=== PATIENT | female | born 1965 | race African-American/Black ===

== ENCOUNTER 2020-10-11 20:22 | Emergency (ER) | payer BC, SELFPAY ==
[2020-10-11 20:30] VITALS: BP 121/72; PULSE 77; RESP 18; TEMP 36.9; O2SAT 97
[2020-10-11 21:46] LABS: Basophils Percent Auto 0.3 % (0.2-1.2); Eosinophils Absolute Auto 0.1 K/mm3 (0-0.3); Eosinophils Percent Auto 1.5 % (0-4.4); Hemoglobin 12.6 g/dL (12.0-15.0); Immature Granulocyte Absolute 0.02 K/mm3 (0.00-0.031); Immature Granulocyte Percent A 0.2 % (0-0.5); Lymphocytes Absolute Auto 2.21 K/mm3 (0.9-3.2); Lymphocytes Percent Auto 25.2 % (18.3-44.2); Mean Corpuscular HGB Conc 33.2 g/dl (32-36); Mean Corpuscular Hemoglobin 30.6 pg (26-34); Mean Corpuscular Volume 92.2 fl (80-100); Mean Platelet Volume 10.2 fl (7.4-10.4); Monocytes Absolute Auto 0.6 K/mm3 (0.1-0.6); Monocytes Percent Auto 6.8 % (2.6-8.5); Neutrophils Absolute Auto 5.8 K/mm3 (1.3-6.7); Platelet Count Result 251 k/mm3 (150-375); Red Blood Count 4.12 M/mm3 (4.2-5.4); Red Cell Distribution Width 12.7 % (11.5-14.5); White Blood Count 8.8 K/mm3 (4.5-10.0)
[2020-10-11 21:56] LABS: Alanine Aminotransferase 12 U/L (4-35); Albumin Level 4.3 g/dL (3.5-5.1); Alkaline Phosphatase 61 U/L (38-126); Anion Gap 6 mmol/L (8-16); Aspartate Amino Transferase 19 U/L (14-36); Bilirubin,Total 0.4 mg/dL (0.2-1.3); Blood Urea Nitrogen 11 mg/dL (7-17); Calcium 8.4 mg/dL (8.4-10.2); Carbon Dioxide 29 mmol/L (22-30); Chloride 102 mmol/L (98-107); Estimated CRCL calculation 76 ml/min; Estimated Glomerular Filt Rate > 60; Glucose 90 mg/dL (65-110); Potassium 3.4 mmol/L (3.4-5.0); Sodium 137 mmol/L (137-145)
[2020-10-11 22:05] VITALS: BP 115/57; PULSE 62; O2SAT 100
--- NOTE | 2020-10-11 23:39 | ED.GENADULT ---
HPI - General Adult General Chief complaint: Recheck/Abnormal Lab/Rx Stated complaint: high bp, dysuria (scant void) Time Seen by Provider: 10/11/20 23:38 Source: patient Mode of arrival: ambulatory Limitations: no limitations History of Present Illness HPI narrative: Patient is a 55-year-old female complaining of decreased urine output x1 week. Patient states that she takes her water pill, HCTZ, she would usually have increased urine output and help with the swelling of her legs. Past 2 weeks it is not helping and she is unable to see her primary care physician until the end of October to have the medication changed. Patient denies any headache, dizziness, chest pain, shortness of breath, abdominal pain, nausea, vomiting, diarrhea, fever or chills. Patient states that she is taking lisinopril for high blood pressure. Patient states that she had some blurry vision earlier in the week but has not had since. Denies any speech or visual disturbance, focal weakness or numbness, or unsteady gait. Related Data Home Medications Medication Instructions Recorded Confirmed hydrochlorothiazide 25 mg PO DAILY 10/11/20 lisinopril 20 mg PO DAILY 10/11/20 Allergies Allergy/AdvReac Type Severity Reaction Status Date / Time diphenhydramine AdvReac Dizziness Verified 10/11/20 23:38 [From Cristhian] Review of Systems Review of Systems: All systems reviewed & are unremarkable except as noted in HPI and below Constitutional: Constitutional: Denies body ache(s), Denies chills, Denies excessive sweating, Denies fatigue, Denies fever(s), Denies headache(s), Denies lethargy, Denies malaise, Denies weakness and Denies weight loss Eyes: Eyes: Denies blurry vision, Denies change in vision and Denies loss of vision ENT: Denies dizziness, Denies ear discharge, Denies headache(s), Denies lip swelling, Denies epistaxis, Denies nasal congestion, Denies neck pain, Denies throat swelling and Denies tongue swelling Cardiovascular: Cardiovascular: Denies chest pain, Denies chest pain at rest, Denies chest pain with activity, Denies diaphoresis, Denies rapid heart rate, Denies edema, Denies irregular heart rhythm, Denies lightheadedness, Denies palpitations, Denies dyspnea and Denies dyspnea on exertion Respiratory: Respiratory: Denies chest congestion, Denies cough, Denies hemoptysis, Denies dyspnea and Denies dyspnea on exertion Gastrointestinal: Gastrointestinal: Denies abdominal pain, Denies melena, Denies hematochezia, Denies diarrhea, Denies nausea, Denies vomiting and Denies hematemesis Musculoskeletal: Musculoskeletal: Denies abnormal gait, Denies deformity, Denies joint swelling, Denies limited range of motion, Denies neck pain and Denies numbness Neurologic: Denies Abnormal speech present, Denies abnormal gait, Denies confusion, Denies dizziness, Denies headache(s), Denies focal weakness, Denies loss of vision, Denies numbness, Denies Sensory deficit (Neuro) and Denies weakness Psychiatric: Psychiatric: Denies confusion, Denies depression, Denies auditory hallucinations, Denies homicidal ideation and Denies suicidal ideation Endocrine: Endocrine: Denies cold intolerance, Denies excessive sweating, Denies fatigue, Denies heat intolerance and Denies palpitations Hematologic/Lymphatic: Hematologic/Lymphatic: Denies easy bleeding and Denies easy bruising Allergic/Immunologic: Allergic/Immunologic: Denies lip swelling, Denies throat swelling and Denies tongue swelling PMFSH Social History Social History Gender identity (if verbalized by the patient): Female Comments Past medical history: Hypertension Family history: Noncontributory Social history: Non-smoker no EtOH or drug use Exam Const: General: cooperative, healthy appearing, comfortable, no acute distress, well developed, alert and awake; No confusion Orientation/consciousness: oriented to person, oriented to place, oriented to time, patient oriented x3 and No confusion Limitatio
[2020-10-11 23:44] VITALS: BP 120/73; PULSE 65; RESP 14; O2SAT 100
[2020-10-12 01:08] VITALS: BP 112/64; PULSE 61; RESP 16; O2SAT 100
== END 2020-10-12 01:08 | disposition home or self-care (01) ==
PROVIDERS: Emergency Medicine; Emergency Provider Emergency Medicine
DX: R60.0 Localized edema (principal); I10 Essential (primary) hypertension
CPT/HCPCS: 36415; 80053; 85025; 99283

== ENCOUNTER 2021-01-14 16:27 | Emergency (ER) | payer BC, SELFPAY ==
[2021-01-14 16:29] VITALS: BP 147/85; PULSE 75; RESP 16; TEMP 36.3; O2SAT 96
[2021-01-14 17:03] LABS: Add Urine Microscopic? NO; Appearance Urine Clear (Clear); Bilirubin Urine Negative (Negative); Blood Urine Negative (Negative); Color Urine Yellow (Yellow); Glucose Urine UA Negative (Negative); Ketones Urine Negative (Negative); Leukocyte Esterase Ur Negative LEU/UL (Negative); Nitrate Urine Negative (Negative); Protein Urine Negative (Negative); Specific Grav Ur 1.016 (1.001-1.035); Urobilinogen Urine Negative mg/dL (<2.0)
--- NOTE | 2021-01-14 17:50 | ED.FEMALEGU ---
HPI - Female Genitourinary General Chief complaint: Urogenital-Female Stated complaint: bladder infection Time Seen by Provider: 01/14/21 17:18 History of Present Illness HPI Narrative: Patient is a 55-year-old female who presents ER with urinary frequency. Ongoing over the last week. Reports she is urinating 20 times a day. No dysuria. She feels like she does have some poor smelling urine. No fevers or chills or sweats. No lower abdominal pain but does feel like she has bloating or retaining urine. She reports this happened to her in the past when she lived in [place] and she was told she had the female equivalent of a male prostate and she was placed on medication that decrease its size and allowed her to urinate. Related Data Home Medications Medication Instructions Recorded Confirmed hydrochlorothiazide 25 mg PO DAILY 10/11/20 lisinopril 20 mg PO DAILY 10/11/20 Allergies Allergy/AdvReac Type Severity Reaction Status Date / Time diphenhydramine AdvReac Dizziness Verified 01/14/21 16:32 [From Cristhian] Review of Systems Constitutional: Constitutional: Denies chills and Denies fatigue Gastrointestinal: Gastrointestinal: Denies abdominal pain and Denies nausea Genitourinary: Genitourinary: Denies abnormal vaginal bleeding, Denies hematuria, Reports nocturia, Denies dysuria, Denies flank pain, Denies urinary incontinence and Denies vaginal discharge PMFSH Past Medical History Medical History (Updated 01/14/21 @ 17:56 by Ulises Gusman MD) Hypertension Surgical History Surgical History (Updated 01/14/21 @ 17:53 by Ulises Gusman MD) No pertinent past surgical history Social History Social History (Updated 01/14/21 @ 17:53 by Ulises Gusman MD) Substance use: never Gender identity (if verbalized by the patient): Female Exam Narrative: GENERAL: Well-appearing, well-nourished, and in no acute distress. HEAD: Normocephalic, atraumatic. CHEST: Clear to auscultation. No respiratory distress. HEART: Regular rate and rhythm. Normal peripheral pulses. ABDOMEN: Soft, nontender, nondistended, normal active bowel sounds. EXTREMITIES: Normal range of motion. No edema. NEURO: Alert and oriented x3. PSYCH: Normal mood and affect. Course Course Emergency Course: Patient resting comfortably. Bladder scan without significant retention of urine. Patient may have some swelling of her Orason's glands and so we will give her Flomax. She may also be urinary needing frequently due to her hypertensive medications. Discussed that she should follow-up with her primary care doctor. Vital Signs Vital signs: Vital Signs Temperature 97.3 F L 01/14/21 16:29 Pulse Rate 75 01/14/21 16:29 Respiratory Rate 16 01/14/21 16:29 Blood Pressure 147/85 H 01/14/21 16:29 Pulse Oximetry 96 01/14/21 16:29 Temperature 97.3 F L 01/14/21 16:29 Pulse Rate 75 01/14/21 16:29 Respiratory Rate 16 01/14/21 16:29 Blood Pressure 147/85 H 01/14/21 16:29 Pulse Oximetry 96 01/14/21 16:29 MDM - Female Genitourinary Lab Data Labs: Lab Results 01/14/21 Range/Units 16:51 Urine Color Yellow (Yellow) Urine Appearance Clear (Clear) Urine pH 6.0 (5.0-9.0) Ur Specific [place] 1.016 (1.001-1.035) Urine Protein Negative (Negative) mg/dL Urine Glucose (UA) Negative (Negative) mg/dL Urine Ketones Negative (Negative) mg/dL Ur Blood (Man) Negative (Negative) Urine Nitrate Negative (Negative) Urine Bilirubin Negative (Negative) Urine Urobilinogen Negative (<2.0) mg/dL Leukocyte Esterase Rfl Negative (Negative) ELBA/UL Discharge Plan Discharge Clinical Impression: Urinary frequency Patient Disposition: Home, Self-Care Condition: Stable Instructions: Urinary Urgency and Frequency (DC) Additional Instructions: Return the ER if you have fever over 100.4 ?F, you cannot keep down food or water, you have chest pain or shortness of
== END 2021-01-14 18:50 | disposition home or self-care (01) ==
PROVIDERS: Emergency Provider Emergency Medicine
DX: R35.0 Frequency of micturition (principal); I10 Essential (primary) hypertension
CPT/HCPCS: 81003; 99283

== ENCOUNTER 2021-02-15 00:32 | Emergency (ER) | payer BC, SELFPAY ==
[2021-02-15 00:35] VITALS: BP 137/81; PULSE 94; RESP 20; TEMP 36.5; O2SAT 99
--- NOTE | 2021-02-15 03:20 | PC.NURSE ---
Pt approaches triage desk to ask Why are they being called back they came in after I did . Rn informed pt the deputy sheriff court services will be seeing the patient, and she is waiting for the regular ER physician.
--- NOTE | 2021-02-15 03:30 | PC.NURSE ---
PT approached Triage desk states I have noticed there are only two people left in the waiting room and we are both black . I have been watching and there are people who have gone to the back that came in after us . Rn assured pt the we take pt's back based on severity and the length of stay. If the patient is more sever they go to a room first next is based on how long the person has been waiting. Rn did inform pt we do not base time you wait on race we do nothing here based on race. Pt walks away from triage desk stating don't worry I will watch you .
[2021-02-15 04:04] VITALS: BP 119/59; PULSE 69; RESP 16; O2SAT 100
--- NOTE | 2021-02-15 04:33 | PC.NURSE ---
Pt refusing COVID swab done appropriately stating I don't want it unless it's just around just the tip of my nose. Pt expresses concern over getting COVID from the swab stating that she does not trust them. ERP made aware, rapid COVID swab cancelled.
--- NOTE | 2021-02-15 05:05 | ED.GENADULT ---
HPI - General Adult General Chief complaint: Upper Respiratory Infection Stated complaint: nasal congestion Time Seen by Provider: 02/15/21 03:41 Source: RN notes reviewed History of Present Illness HPI narrative: Patient states she is used [id number] antihistamines as well as nasal sprays with minimal relief patient presents emergency department from home for sinus infection. Patient states that she has had progressive worsening symptoms of a sinus infection for the past 1 month. She states she has had rhinorrhea and congestion with tenderness of her bilateral cheeks she states that she has a history of 3 previous sinus surgeries and gets frequent sinus infections. She states usually is treated with steroids Flonase antibiotics with improvement of her symptoms. She denies any fevers or chills ear pain sore throat cough shortness of breath abdominal pain or any other symptoms states she has had vaccinations for COVID-19 patient states her rhinorrhea is a thick yellow to green Related Data Home Medications Medication Instructions Recorded Confirmed hydrochlorothiazide 25 mg PO DAILY 10/11/20 lisinopril 20 mg PO DAILY 10/11/20 amlodipine 02/15/21 02/15/21 Allergies Allergy/AdvReac Type Severity Reaction Status Date / Time diphenhydramine AdvReac Dizziness Verified 02/15/21 04:12 [From Benadryl] Review of Systems Review of Systems: Gen.: Denies fevers or chills Eyes: Denies eye pain or visual change ENT: See HPI Respiratory: Denies shortness of breath or cough CV: Denies chest pain or palpitations GI: Denies abdominal pain nausea, emesis or diarrhea Musculoskeletal: Denies neck pain Neuro: Denies headache Skin: Denies rash Except as documented, all other systems reviewed and negative [facility] Past Medical History Medical History Hypertension Surgical History Surgical History (Updated 01/14/21 @ 17:53 by Ulises Gusman MD) No pertinent past surgical history Social History Social History Substance use: never Gender identity (if verbalized by the patient): Female Exam Narrative: APPEARANCE: No acute distress, nontoxic, resting in bed EYES: EOMI HEENT: Normocephalic, atraumatic, TMs clear bilaterally, bilateral turbinates boggy tenderness to palpation of bilateral maxillary sinuses, oral mucosa moist no erythema exudate posterior pharynx RESPIRATORY: No respiratory distress Clear to auscultation bilaterally with no rhonchi wheezing or rales. CARDIOVASCULAR: Regular rate and rhythm without murmurs rubs or gallops. ABDOMINAL: Soft, nontender, nondistended, no rebound or guarding MUSCULOSKELETAl: Moves all extremities. NEURO: Awake and alert. Following commands, speech normal, no focal deficits SKIN:: Warm, dry. No rashes lesions or abrasions PSYCHIATRIC: Normal affect/mood, Course Course Emergency Course: Patient is refusing COVID-19 swab in the emergency department. Discussed risks and been continues to refuse Discussed with patient results of workup and diagnosis. Discussed need for follow-up with primary care, proper use of medication, and reasons to return to the emergency department. Patient understands and agrees to current treatment plan Vital Signs Vital signs: Vital Signs Temperature 97.7 F 02/15/21 00:35 Pulse Rate 94 02/15/21 00:35 Respiratory Rate 20 02/15/21 00:35 Blood Pressure 137/81 02/15/21 00:35 Pulse Oximetry 99 02/15/21 00:35 Temperature 97.7 F 02/15/21 00:35 Pulse Rate 69 02/15/21 04:04 Respiratory Rate 16 02/15/21 04:04 Blood Pressure 119/59 L 02/15/21 04:04 Pulse Oximetry 100 02/15/21 04:04 Medical Decision Making Vital Signs Vital Signs: Vital Signs Temperature 97.7 F 02/15/21 00:35 Pulse Rate 94 02/15/21 00:35 Respiratory Rate 20 02/15/21 00:35 Blood Pressure 137/81 02/15/21 00:35 Pulse Oximetry 99
[2021-02-15] MEDS: AMOXICILLIN/CLAVULANATE K 875-125 MG TAB 1 TABLET PO (05:18)
[2021-02-15] MEDS: predniSONE 20 MG TABLET 60 MG PO (05:18)
[2021-02-15 05:21] VITALS: BP 133/74; PULSE 72; RESP 16; O2SAT 95
--- NOTE | 2021-02-15 05:28 | PC.NURSE ---
pt seen ambulating with steady gait out of ed via ambulance bay.
== END 2021-02-15 05:25 | disposition home or self-care (01) ==
PROVIDERS: Emergency Provider Emergency Medicine
DX: J32.9 Chronic sinusitis, unspecified (principal); I10 Essential (primary) hypertension
CPT/HCPCS: 99283; A9270; J7512

== ENCOUNTER 2022-04-19 02:06 | Emergency (ER) | payer SELFPAY ==
[2022-04-19 02:10] VITALS: BP 182/89; PULSE 75; RESP 20; TEMP 36.5; O2SAT 100
--- NOTE | 2022-04-19 03:50 | PC.NURSE ---
patient became angry at this RN because another patient in the waiting room had a pillow, their own pillow, and this RN stated that there were no pillows to give her while she was in the waiting room. This rn told patient that she could lay down int he family service room and gave her several blankets. Patient accused this nurse of judging her and proceeded to tell this rn that she had a 7 bedroom home and that this rn doesnt know who you are dealing with . Patient became angry and left the waiting room stating You didnt let me lay on that couch the hospital owns that couch, but you give them a pillow and not me . you havent heard the last of this
== END 2022-04-19 04:30 | disposition left against medical advice (07) ==
PROVIDERS: PCP Emergency Medicine
DX: Z53.21 Procedure and treatment not carried out due to patient leaving prior to being seen by health care provider (principal)
CPT/HCPCS: 99199